=== PATIENT | male | born 2005 | race Hispanic/Latino ===

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

== ENCOUNTER 2024-01-25 10:08 | Emergency (ER) | payer OTHER ==
[2024-01-25] MEDS ORDERED: Ondansetron ODT 4 MG TAB ONE (10:57)
== END 2024-01-25 12:03 | disposition home or self-care (01) ==
LOC: ERS 10:08
DX: R11.0 Nausea (principal)
CPT/HCPCS: 87081; 87430; 99283; Q0162

== ENCOUNTER 2024-02-16 21:20 | Emergency (ER) | payer SELFPAY ==
[2024-02-16 22:40] LABS: ALT (SGPT) 71 U/L (8-55); AST (SGOT) 48 U/L (10-45); Albumin 4.1 g/dL (3.5-5.0); Alkaline Phosphatase 124 U/L (50-130); Anion Gap 16 mmol/L (10-20); BUN (Urea Nitrogen) 11 mg/dL (8.4-21.0); Bilirubin, Total 0.3 mg/dL (0.2-1.2); Calc. Creatinine Clearance 0 mL/min (70-130); Calcium 9.8 mg/dL (7.8-10.44); Carbon Dioxide 18 mmol/L (22-29); Chloride 107 mmol/L (98-107); Estimated GFR 130; Globulin 4.4 g/dL (2.4-3.5); Glucose 101 mg/dL (70-105); Lipase 20 U/L (8-78); Potassium 4.3 mmol/L (3.5-5.1); Protein, Total 8.5 g/dL (6.0-8.3); Sodium 137 mmol/L (136-145)
[2024-02-16] MEDS ORDERED: Acetaminophen 500 MG TAB ONE (22:56)
[2024-02-16] MEDS ORDERED: Famotidine 20 MG TAB ONE (22:57)
[2024-02-16] MEDS ORDERED: Ibuprofen 200 MG TAB ONE ×2 (22:57)
[2024-02-16 23:00] LABS: #Basophils 0.03 10x3/uL (0.0-0.2); %Basophils 0.2 % (0.0-1.0); %Eosinophils 0.7 % (0.0-10.0); %Lymphocytes 24.9 % (28.0-48.0); %Monocytes 5.8 % (0.0-4.0); Hematocrit 45.4 % (42.0-52.0); Hemoglobin 14.9 g/dL (14.0-18.0); Mean Corpuscular HGB CONC 32.8 g/dL (32.0-36.0); Mean Corpuscular Hemoglobin 28.9 pg (25.0-35.0); Mean Platelet Volume 9.7 fL (7.4-10.4); Platelet Count 348 10x3/uL (130-400); Red Blood Cell (RBC) Count 5.16 mill/uL (4.00-5.20)
[2024-02-16 23:31] LABS: Bacteria/HPF None Seen HPF (None Seen); Bilirubin Negative (Negative); Blood, Urine Negative (Negative); CAUTI Indications for Culture Pelvic or flank pain; Clarity Clear (Clear); Glucose, Urine (Dipstick) Normal (Negative); Ketone, Urine Negative (Negative); Leukocyte Negative Leu/uL (Negative); Nitrite Negative (Negative); Protein, Urine (Dipstick) Negative (Neg-Trace); RBC/HPF 0-3 HPF (0-3); Specific Gravity, Urine 1.028 (1.002-1.036); Squamous Epithelial 0-3 HPF (0-3); Urobilinogen Normal mg/dL (Less than 2); WBC/HPF None Seen HPF (0-3); pH, Urine 5.5 (5.0-9.0)
[2024-02-16 23:33] LABS: Urine Culture Reflex No No
== END 2024-02-17 00:35 | disposition home or self-care (01) ==
LOC: ERS 21:20
DX: R10.13 Epigastric pain (principal); Z75.3 Unavailability and inaccessibility of health-care facilities
CPT/HCPCS: 36415; 80053; 81001; 83690; 85025; 99284